=== PATIENT | male | born 1965 | race Caucasian/White ===

== ENCOUNTER 2023-05-10 05:39 | Day surgery (SDC) | payer OTHER ==
[2023-05-06 14:17] VITALS: BMI 33.4
[2023-05-10 10:02] VITALS: TEMP 98
[2023-05-10 10:28] VITALS: RESP 17
[2023-05-10 10:32] VITALS: BP 126/76; PULSE 54
== END 2023-05-10 10:32 | disposition home or self-care (01) ==
LOC: JASU-ENDO 05:39
PROVIDERS: ATTEND Internal Medicine Gastroenterology
PROC: 0DBH8ZX Excision of Cecum, Via Natural or Artificial Opening Endoscopic, Diagnostic (ICD-10-PCS; 2023-05-10)
PROC: 0DBK8ZX Excision of Ascending Colon, Via Natural or Artificial Opening Endoscopic, Diagnostic (ICD-10-PCS; principal; 2023-05-10 10:00)
DX: Z12.11 Encounter for screening for malignant neoplasm of colon (principal); D12.0 Benign neoplasm of cecum; D12.2 Benign neoplasm of ascending colon; K64.8 Other hemorrhoids
CPT/HCPCS: 88305-TC